=== PATIENT | male | born 1980 | race Hispanic/Latino ===

== ENCOUNTER 2020-09-21 11:05 | Emergency (ER) | payer BC, OTHER ==
[~2020-09-21] VITALS: Ht 167.6 cm; Wt 108.9 kg
[2020-09-21 11:07] VITALS: BP 130/80
[2020-09-21] MEDS ORDERED: TETANUS/DIPHTHERIA TOXOID [ADULT] 0.5 ML VIAL IM SCH (13:30)
[2020-09-21] MEDS ORDERED: CEPH500C2 PO (14:06)
[2020-09-21] MEDS ORDERED: IBUP-2070 PO (14:06)
[2020-09-21 14:30] VITALS: BP 116/58
== END 2020-09-21 14:31 | disposition home or self-care (01) ==
LOC: EDH 11:05
DX: S61.012A Laceration without foreign body of left thumb without damage to nail, initial encounter (principal); S61.215A Laceration without foreign body of left ring finger without damage to nail, initial encounter; S60.417A Abrasion of left little finger, initial encounter; E11.9 Type 2 diabetes mellitus without complications; I10 Essential (primary) hypertension; E78.00 Pure hypercholesterolemia, unspecified; Z79.1 Long term (current) use of non-steroidal anti-inflammatories (NSAID); W45.8XXA Other foreign body or object entering through skin, initial encounter; Y93.89 Activity, other specified; Y92.89 Other specified places as the place of occurrence of the external cause; Y99.8 Other external cause status
CPT/HCPCS: 12001; 12041; 73100; 90471; 90714